=== PATIENT | male | born 1955 | race Caucasian/White ===

== ENCOUNTER → 2019-01-19 | Outpatient (CLI) | payer OTHER ==
--- NOTE | 2019-01-19 08:01 | Diagnostic Imaging Report ---
PROCEDURE: CT abdomen and pelvis without contrast. TECHNIQUE: Multiple contiguous axial images were obtained through the abdomen and pelvis without the use of intravenous contrast. Auto Exposure Controls were utilized during the CT exam to meet ALARA standards for radiation dose reduction. INDICATION: Hematuria. FINDINGS: Unenhanced images of the liver and spleen reveal no focal abnormality. There is no evidence of gallbladder, pancreatic or adrenal gland abnormality. Evaluation of kidneys is limited without intravenous contrast; however, there is no evidence of urinary tract calculus or obstruction. There is mild aortic atherosclerotic calcification. There is no free fluid within the abdomen or pelvis. There is no evidence of bladder stone. There is no evidence of localized inflammation. The appendix has a normal appearance. There are surgical findings within the anterior pelvic wall and left inguinal region. There is mild herniation of fat into the right inguinal canal. There is mild lower lumbar degenerative disc disease. Degenerative findings are also present in the hips with prominent subchondral cyst on the right acetabular roof. There is prominence of the sacral canal, possibly due to meningocele. IMPRESSION: No evidence of urinary tract mass, calculus or obstruction on the noncontrasted study. Dictated by: Dictated on workstation # [id number]
== END ==
LOC: RAD 07:33
PROVIDERS: ATTEND Urology
DX: R31.29 Other microscopic hematuria (principal)
CPT/HCPCS: 74176